=== PATIENT | male | born 1965 | race Hispanic/Latino ===

== ENCOUNTER 2018-10-29 18:50 | Inpatient (IN) | payer BC, MEDICARE ==
[~2018-10-29] VITALS: Ht 165.1 cm; Wt 72.8 kg
[2018-10-29 20:08] LABS: BASOPHILS % (AUTO) 0.9 % (0.0-5.0); HEMATOCRIT 38.3 % (42-54); LYMPHOCYTES % (AUTO) 15.2 % (21.0-51.0); MEAN CORPUSCULAR HEMOGLOBIN 31.5 pg (27.0-33.0); MEAN CORPUSCULAR HGB CONC 32.5 g/dL (32.0-36.0); MEAN CORPUSCULAR VOLUME 97.1 fL (79-99); MONOCYTES % (AUTO) 5.3 % (3.0-13.0); NEUTROPHILS % (AUTO) 76.6 % (40.0-77.0); NUCLEATED RED BLOOD CELLS 0.1 % (0.0-0.19); PLATELET COUNT (AUTO) 160 K/uL (130-400); RED BLOOD CELL COUNT(AUTO) 3.94 MIL/uL (4.50-6.20); WHITE BLOOD COUNT (AUTO) 5.8 K/uL (4.8-10.8)
[2018-10-29 20:12] LABS: INR 1.15 (0.85-1.15); PARTIAL THROMBOPLASTIN TIME 35.1 SEC (26.3-35.5)
[2018-10-29 20:15] LABS: ALBUMIN 2.3 g/dL (3.5-5.0); BILIRUBIN,TOTAL 1.1 mg/dL (0.2-1.0); CREATININE 0.8 mg/dL (0.5-1.5); TOTAL PROTEIN, SERUM 5.8 g/dL (6.0-8.3)
[2018-10-29 20:23] LABS: POTASSIUM 2.8 mmol/L (3.5-5.1)
[2018-10-29 20:36] LABS: APPEARANCE,URINE Clear (CLEAR); BILIRUBIN,URINE Negative (NEGATIVE); COLOR,URINE Dark Yellow (YELLOW); GLUCOSE, URINE (UA) Negative (NEGATIVE); KETONES,URINE Trace mg/dL (NEGATIVE); LEUKOCYTE ESTERASE ,URINE Trace (NEGATIVE); NITRATE,URINE Positive (NEGATIVE); OCCULT BLOOD,URINE Negative (NEGATIVE); PROTEIN,URINE Trace (NEGATIVE)
[2018-10-29 20:48] LABS: B-TYPE NATRIURETIC PEPTIDE 68 pg/mL (0-100)
[2018-10-29 20:51] LABS: BACTERIA,URINE Rare /HPF (None Seen); CALCIUM OXALATE CRYSTALS,UR Rare /LPF (None Seen); MUCUS,URINE Many LPF (None Seen); RBC,URINE None Seen /HPF (0-1); SQUAMOUS EPITHELIAL CELL,UR None Seen /HPF (0-2); WBC,URINE 0-1 /HPF (0-1)
[2018-10-29] MEDS ORDERED: POTASSIUM BICARB/CIT AC 25 MEQ TABLET.EFF ONE (22:17)
[2018-10-29 23:50] VITALS: BP 137/85
[2018-10-30] MEDS ORDERED: POTASSIUM CHLORIDE 10% ELIXIR 20 MEQ/15 ML UDCUP PO PRN (00:15)
[2018-10-30] MEDS ORDERED: LIDOCAINE HCL-MPF 1% 2ML VIAL IJ PRN (00:15)
[2018-10-30] MEDS ORDERED: POTASSIUM CHLORIDE 20MEQ/100ML 100 ML IV PRN (00:15)
[2018-10-30] MEDS ORDERED: PRAV10TA39 PO ×2 (01:11)
[2018-10-30] MEDS ORDERED: FISH1CAP49 PO ×2 (01:11)
[2018-10-30] MEDS ORDERED: ASPI-1181 PO ×2 (01:11)
[2018-10-30] MEDS ORDERED: MULT-248 PO ×2 (01:11)
[2018-10-30] MEDS ORDERED: UBID200C18 PO ×2 (01:11)
[2018-10-30] MEDS: POTASSIUM CHLORIDE 20 MEQ ERTAB PO PRN (01:24)
[2018-10-30 04:30] VITALS: BP 121/72
[2018-10-30 06:21] LABS: HEMATOCRIT 32.1 % (42-54); MEAN CORPUSCULAR HEMOGLOBIN 32.4 pg (27.0-33.0); MEAN CORPUSCULAR HGB CONC 33.5 g/dL (32.0-36.0); MEAN CORPUSCULAR VOLUME 96.9 fL (79-99); PLATELET COUNT (AUTO) 144 K/uL (130-400); RED BLOOD CELL COUNT(AUTO) 3.31 MIL/uL (4.50-6.20); RED CELL DISTRIBUTION WIDTH 16.1 % (11.0-15.5); WHITE BLOOD COUNT (AUTO) 4.3 K/uL (4.8-10.8)
[2018-10-30 06:45] LABS: CREATININE 0.7 mg/dL (0.5-1.5); MAGNESIUM 1.6 mg/dL (1.80-2.40); POTASSIUM 3.9 mmol/L (3.5-5.1)
[2018-10-30] MEDS: FISH OIL 1000 MG/CAP PO SCH ×3 (07:20→18:20)
[2018-10-30 08:22] VITALS: BP 128/71
[2018-10-30] MEDS: **HM** CO Q-10 200MG PO SCH (09:00)
[2018-10-30] MEDS: ASPIRIN 81 MG EC TAB PO SCH (09:10)
[2018-10-30] MEDS: FUROSEMIDE 40 MG TABLET PO SCH ×3 (09:10→21:30)
[2018-10-30] MEDS: MULTIVITAMIN TABLET PO SCH (09:10)
[2018-10-30] MEDS: MAGNESIUM OXIDE 400 MG TABLET PO SCH ×2 (09:11→21:30)
[2018-10-30 11:55] VITALS: BP 126/75
[2018-10-30 17:06] VITALS: BP 139/74
[2018-10-30 19:20] VITALS: BP 140/83
[2018-10-30] MEDS: **HM** PRAVASTATIN 10MG PO SCH (21:00)
[2018-10-31 00:06] VITALS: BP 125/73
[2018-10-31 04:30] VITALS: BP 127/80
[2018-10-31 05:45] LABS: HEMATOCRIT 33.8 % (42-54); MEAN CORPUSCULAR HEMOGLOBIN 31.8 pg (27.0-33.0); MEAN CORPUSCULAR HGB CONC 33.3 g/dL (32.0-36.0); MEAN CORPUSCULAR VOLUME 95.6 fL (79-99); NUCLEATED RED BLOOD CELLS 0.2 % (0.0-0.19); PLATELET COUNT (AUTO) 142 K/uL (130-400); RED BLOOD CELL COUNT(AUTO) 3.53 MIL/uL (4.50-6.20); RED CELL DISTRIBUTION WIDTH 16.1 % (11.0-15.5); WHITE BLOOD COUNT (AUTO) 4.7 K/uL (4.8-10.8)
[2018-10-31 05:51] LABS: CREATININE 0.8 mg/dL (0.5-1.5); POTASSIUM 3.6 mmol/L (3.5-5.1)
[2018-10-31 07:00] VITALS: BP 119/71
[2018-10-31] MEDS: MAGNESIUM OXIDE 400 MG TABLET PO SCH ×2 (08:51→21:05)
[2018-10-31] MEDS: MULTIVITAMIN TABLET PO SCH (08:51)
[2018-10-31] MEDS: ASPIRIN 81 MG EC TAB PO SCH (08:51)
[2018-10-31] MEDS: FISH OIL 1000 MG/CAP PO SCH ×3 (08:51→17:25)
[2018-10-31] MEDS: FUROSEMIDE 40 MG TABLET PO SCH ×3 (08:51→21:05)
[2018-10-31] MEDS: **HM** CO Q-10 200MG PO SCH (09:00)
[2018-10-31 09:46] LABS: CREATININE,SERUM FOR CRCL 0.8 mg/dL (0.6-1.3)
[2018-10-31 11:00] VITALS: BP 125/77
[2018-10-31 15:57] LABS: % IRON SATURATION 26.8 % (30-44)
[2018-10-31 16:00] VITALS: BP 122/71
[2018-10-31 19:35] VITALS: BP 128/76
[2018-10-31] MEDS: **HM** PRAVASTATIN 10MG PO SCH (21:00)
[2018-11-01 00:25] VITALS: BP 115/75
[2018-11-01 04:20] VITALS: BP 112/74
[2018-11-01 05:28] LABS: HEMATOCRIT 32.2 % (42-54); MEAN CORPUSCULAR HEMOGLOBIN 32.3 pg (27.0-33.0); MEAN CORPUSCULAR HGB CONC 33.7 g/dL (32.0-36.0); MEAN CORPUSCULAR VOLUME 95.7 fL (79-99); NUCLEATED RED BLOOD CELLS 0.1 % (0.0-0.19); PLATELET COUNT (AUTO) 142 K/uL (130-400); RED BLOOD CELL COUNT(AUTO) 3.37 MIL/uL (4.50-6.20); RED CELL DISTRIBUTION WIDTH 15.5 % (11.0-15.5); WHITE BLOOD COUNT (AUTO) 4.8 K/uL (4.8-10.8)
[2018-11-01 05:47] LABS: ALBUMIN 1.9 g/dL (3.5-5.0); BILIRUBIN,DIRECT 0.5 mg/dL (0.0-0.3); BILIRUBIN,TOTAL 1.2 mg/dL (0.2-1.0); CREATININE 0.8 mg/dL (0.5-1.5); POTASSIUM 3.2 mmol/L (3.5-5.1)
[2018-11-01 07:56] VITALS: BP 110/70
[2018-11-01] MEDS: FUROSEMIDE 40 MG TABLET PO SCH (08:25)
[2018-11-01] MEDS: MAGNESIUM OXIDE 400 MG TABLET PO SCH (08:26)
[2018-11-01] MEDS: ASPIRIN 81 MG EC TAB PO SCH (08:26)
[2018-11-01] MEDS: POTASSIUM CHLORIDE 20 MEQ ERTAB PO PRN ×3 (08:26→11:57)
[2018-11-01] MEDS: MULTIVITAMIN TABLET PO SCH (08:26)
[2018-11-01] MEDS: FISH OIL 1000 MG/CAP PO SCH ×2 (08:26→11:57)
[2018-11-01] MEDS: **HM** CO Q-10 200MG PO SCH (08:30)
[2018-11-01 12:08] VITALS: BP 113/67
== END 2018-11-01 13:36 | disposition home or self-care (01) | DRG 433 ==
LOC: EDH 18:50 → EDHIP 22:16 → 3DH 23:31
PROVIDERS: ADMIT Internal Medicine; ATTEND Internal Medicine
DX: K74.60 Unspecified cirrhosis of liver (principal); K76.6 Portal hypertension; E87.6 Hypokalemia; D64.9 Anemia, unspecified; R16.1 Splenomegaly, not elsewhere classified; E83.42 Hypomagnesemia; E11.9 Type 2 diabetes mellitus without complications; R60.0 Localized edema; Z23 Encounter for immunization
CPT/HCPCS: 36415; 71045; 76700; 80048; 80053; 80076; 81001; 82390; 82575; 82607; 82728; 82746; 83540; 83550; 83735; 83880; 84466; 85025; 85027; 85610; 85730; 86038; 93005; 93306; 93970; Q2038

== ENCOUNTER → 2019-02-01 | Outpatient (CLI) | payer OTHER ==
[~2019-02-01] MED LIST: ASPI-1181 PO; FISH1CAP49 PO; MULT-248 PO; PRAV10TA39 PO; UBID200C18 PO
== END | disposition home or self-care (01) ==
LOC: RAH 13:01
PROVIDERS: ATTEND Internal Medicine
DX: R09.89 Other specified symptoms and signs involving the circulatory and respiratory systems (principal); I73.9 Peripheral vascular disease, unspecified
CPT/HCPCS: 93922

== ENCOUNTER 2019-02-20 07:43 | Day surgery (SDC) | payer OTHER ==
[2019-02-19 12:30] VITALS: BP 113/80
[2019-02-19 12:50] LABS: BASOPHILS % (AUTO) 1.2 % (0.0-5.0); EOSINOPHILS % (AUTO) 4.1 % (0.0-8.0); HEMATOCRIT 43.1 % (42-54); LYMPHOCYTES % (AUTO) 17.3 % (21.0-51.0); MEAN CORPUSCULAR HEMOGLOBIN 31.5 pg (27.0-33.0); MEAN CORPUSCULAR HGB CONC 34.4 g/dL (32.0-36.0); MEAN CORPUSCULAR VOLUME 91.4 fL (79-99); MONOCYTES % (AUTO) 5.5 % (3.0-13.0); NEUTROPHILS % (AUTO) 71.9 % (40.0-77.0); NUCLEATED RED BLOOD CELLS 0.1 % (0.0-0.19); PLATELET COUNT (AUTO) 236 K/uL (130-400); RED BLOOD CELL COUNT(AUTO) 4.71 MIL/uL (4.50-6.20); RED CELL DISTRIBUTION WIDTH 13.3 % (11.0-15.5); WHITE BLOOD COUNT (AUTO) 8.1 K/uL (4.8-10.8)
[2019-02-19 12:55] LABS: APPEARANCE,URINE Clear (CLEAR); BILIRUBIN,URINE Negative (NEGATIVE); COLOR,URINE Dark Yellow (YELLOW); GLUCOSE, URINE (UA) Negative (NEGATIVE); KETONES,URINE Negative (NEGATIVE); LEUKOCYTE ESTERASE ,URINE Negative (NEGATIVE); NITRATE,URINE Negative (NEGATIVE); OCCULT BLOOD,URINE Negative (NEGATIVE); PROTEIN,URINE Negative (NEGATIVE)
[2019-02-19 13:01] LABS: BACTERIA,URINE Rare /HPF (None Seen); MUCUS,URINE Few LPF (None Seen); RBC,URINE 0-1 /HPF (0-1); SQUAMOUS EPITHELIAL CELL,UR Rare /HPF (0-2)
[2019-02-19 13:04] LABS: INR 1.1 (0.85-1.15); PROTHROMBIN TIME 11.5 SEC (9.6-11.6)
[2019-02-19 13:16] LABS: CREATININE 0.9 mg/dL (0.5-1.5); POTASSIUM 4.2 mmol/L (3.5-5.1)
[2019-02-20] VITALS (11 sets, daily range): BP systolic 117–138; BP diastolic 59–93
[~2019-02-20] VITALS: Ht 167.6 cm; Wt 72.2 kg
[~2019-02-20 07:43] MED LIST changes: +CIPR500S5 PO; +FURO40TA5 PO; +SPIR25TA6 PO
[2019-02-20] MEDS ORDERED: LACTATED RINGERS 1000ML 1,000 ML IV ONE (08:46)
[2019-02-20] MEDS ORDERED: LEVOFLOXACIN 500 MG/D5W 100 ML 100 ML ONE (08:46)
[2019-02-20] MEDS ORDERED: LIDOCAINE PF 2% 5ML ABBOJECT ONE (08:54)
[2019-02-20] MEDS ORDERED: GLYCOPYRROLATE 1 MG/5 ML SYRINGE ONE (08:54)
[2019-02-20] MEDS ORDERED: PROPOFOL 10 MG/ML 20ML VIAL IV ONE (08:54)
[2019-02-20] MEDS ORDERED: ROCURONIUM 10MG/1ML SYR 10 MG/ML ML ONE (08:54)
[2019-02-20] MEDS ORDERED: NEOSTIGMINE 5MG/5ML SYR IV ONE (08:54)
[2019-02-20] MEDS ORDERED: MIDAZOLAM HCL 1 MG/ML 2ML VIAL ONE (08:54)
[2019-02-20] MEDS ORDERED: DEXAMETHASONE SOD PHOSPHATE 10MG/ML 1ML VIAL ONE (08:54)
[2019-02-20] MEDS ORDERED: ONDANSETRON HCL 4 MG/2 ML VIAL ONE (08:54)
[2019-02-20] MEDS ORDERED: SUCCINYLCHOLINE 200MG/10ML SYR ONE (08:54)
[2019-02-20] MEDS ORDERED: FENTANYL CITRATE PF 50 MCG/1 ML 2ML VIAL ONE ×2 (08:55→09:36)
[2019-02-20] MEDS ORDERED: BUPIVACAINE/PF 0.25% 30ML VIAL IJ ONE (10:08)
[2019-02-20] MEDS ORDERED: MEPERIDINE-PF 25 MG/ML SYG ONE (10:33)
[2019-02-20] MEDS ORDERED: KETOROLAC TROMETHAMINE 30MG/ML ONE (10:52)
== END 2019-02-20 12:07 | disposition home or self-care (01) ==
LOC: DAH 07:43
PROVIDERS: ATTEND Surgery
DX: K60.3 Anal fistula (principal); Z88.0 Allergy status to penicillin; Z79.899 Other long term (current) drug therapy; Z98.890 Other specified postprocedural states; B19.20 Unspecified viral hepatitis C without hepatic coma; I10 Essential (primary) hypertension
CPT/HCPCS: 36415; 46270; 80048; 81001; 85025; 85610; A4930; J0330; J1100; J1885; J1956; J2001; J2175; J2250; J2405; J2704; J2710; J3010 ×2; J3490 ×2; J7120 ×2

== ENCOUNTER → 2021-06-08 | Outpatient (CLI) | payer OTHER ==
[~2021-06-08] MED LIST changes: -ASPI-1181 PO; +ASPI-1443 PO
== END | disposition home or self-care (01) ==
LOC: RAH 09:40
PROVIDERS: ATTEND Internal Medicine Gastroenterology
DX: K70.31 Alcoholic cirrhosis of liver with ascites (principal); K80.20 Calculus of gallbladder without cholecystitis without obstruction; R16.1 Splenomegaly, not elsewhere classified
CPT/HCPCS: 76700; 93975